=== PATIENT | female | born 1950 | race Caucasian/White ===

== ENCOUNTER 2021-10-19 11:37 | Outpatient (CLI) | payer MEDICARE, OTHER, SELFPAY ==
[2021-10-19] MEDS: 0.9% Saline Lock 10 ML Syringe IV (11:53)
[2021-10-19 13:07] VITALS: BP 137/72; PULSE 92; RESP 16; TEMP 36.9; O2SAT 94
[2021-10-19 14:02] VITALS: BP 133/58; PULSE 91; RESP 16; TEMP 36.8; O2SAT 94
== END 2021-10-19 14:10 | disposition home or self-care (01) ==
LOC: MS3OUT 11:38 → MS3 11:38
PROVIDERS: Referring Provider Nurse Practitioner Acute Care; Visit Provider Nurse Practitioner Acute Care
DX: Z23 Encounter for immunization (principal); U07.1 COVID-19
CPT/HCPCS: J7050; M0245; Q0245; A4216